=== PATIENT | female | born 1930 | race Caucasian/White ===

== ENCOUNTER 2020-10-05 18:51 | Inpatient (IN) | payer OTHER ==
--- OUTSIDE RECORDS SUMMARY | 2020-10-05 19:02 | XMS REPORT | Continuity of Care Document ---
:1930 Author Organization [facility] t Address [address] [place] [address] Care Team Providers Name Role Phone Josh Gee MD Primary Care Physician Unavailable LEON CAMACHO Attending Clinician Unavailable LUKE SOLORIO Attending Clinician Unavailable LEON CAMACHO Admitting Clinician Unavailable LUKE SOLORIO Admitting Clinician Unavailable Problems Condition Condition Condition Status Onset Resolution Last Treating Co mments Source Name Details Category Date Date Treatment Clinician Date Back pain Back pain Disease Active [facility] at L4-L5 at L4-L5 3-12 [facility] level [facility] 00 Center Primary Primary Disease Active [facility] osteoarthr osteoarthr 5-11 [facility] - itis of itis of 00:00: Medical right knee right knee 00 Ce nter Primary Primary Disease Active [facility] osteoarthr osteoarthr 2-24 Lana kes - itis of itis of 00:00: Medical left knee left knee 00 Cent er Localized Localized Disease Active [facility] primary primary 2-24 [facility] - osteoarthr osteoarthr 00:00: Me dical itis of itis of 00 [place] left lower left lower leg leg Nausea and Nausea and Disease Active 2015-[address] vomiting vomiting 2-29 [facility] - 00:00: Medical 00 [place] Left upper Left upper Disease Active 2015-[address] quadrant quadrant 2-29 [facility] - pain pain 00:00: Medical 00 [place] Constipati Constipati Disease Active 2015-[address] on on - 00:00: Medical 00 [place] Hypothyroi Hypothyroi Disease Active 2015-[address] dism dism 05-25 - 00:00: Medical 00 [place] Acute Acute Disease Active 2015-[address] [facility] diverticul diverticul 05-16 Lana kes - itis itis 00:00: Medical 00 [place] GI bleed GI bleed Disease Active 2015-04 [facility] 04-15 [facility] - 00:[facility]: Medical 00 [place] Diverticul Diverticul Disease Active 2015-[address] itis of itis of 04-14 [facility] - large large 00:00: Medical intestine intestine 00 Cent er without without perforatio perforatio n or n or abscess abscess without without bleeding bleeding ANSHU (acute ANSHU (acute Disease Active 2015-[address] kidney kidney 04-14kes - injury) injury) 00:00: Medical 00 [place] Dehydratio Dehydratio Disease Active 2015-[address] n n - 00:00: Medical 00 [place] Grief Grief Disease Active 2015-[address] [facility] reaction reaction - 00:00: Medical 00 [place] Hyponatrem Hyponatrem Disease Active 2012-[address] ia ia 04-02kes - 00:00: Medical 00 [place] Cholelithi Cholelithi Disease Active 2012-[address] asis asis 04-02kes - 00:00: Medical 00 [place] Myoclonic Myoclonic Disease Active [facility] jerking jerking 12-29 - 00:00: Medical 00 [place] Muscle Muscle Disease Active [facility] spasms of spasms of 12-29 [facility] - lower lower 00:00: Medical extremity extremity 00 Cent er Hypertensi Hypertensi Disease Active [facility] on on 12-29kes - 00:00: Medical 00 [place] Cancer Cancer Disease Active Overview: [facility] Right [facility] breast [facility] Thyroid Thyroid Disease Active [facility] disease disease [facility] Allergies, Adverse Reactions, Alerts Allergy Allergy Status Severity Reaction(s) Onset Inactive Treating Comm ents Source Name Type Date Date Clinician [place] Drug Active Other (See 2015-[address] Pepper Intolera Comments) 2-16 litis [facility] - nce 00:00: Medical 00 [place] Tizanidi Drug Active Other (See 2015-[address] [facility] [address] [facility] ne Allergy Comments) it caused Venita es - 00:00: dizziness Medical 00 . Center Duloxeti Propensi Active Muscle [facility] ne ty to 12-29 spasms [facility] - adverse 00:00: Medical reaction 00 Center s Alendron Propensi Active Muscle [facility] ate ty to 12-29 spasms [facility] - adverse 00:00: Medical reaction 00 [place] s Fluoxeti Propensi Active Muscle [facility] ne ty to 12-29 spasms [facility] - adverse 00:00: Medical reaction 00 [place] s Simvasta Propensi Active Muscle [facility] tin ty to 12-29 spasms [facility] - adverse 00:00: Medical reaction 00 [place] s Family History Family Member Diagnosis Comments Start Date Stop Date Source Natural father Diabetes [facility] Natural father Heart disease [facility] Natural mother Asthma [facility] Natural sister Cancer [facility] Natural son Cancer [facility] Social History Social Habit Start Date Stop Date Quantity Comments Source Sex Assigned At [facility] Tobacco use and 2017-06-12 2017-06-12 [address] [facility] 00:00:00 00:00:00 [facility] Alcohol intake 2017-06-12 2017-06-[address] [facility] 00:00:00 00:00:00 non-drinker of Medical nter alcohol (finding) Smoking Status Start Date Stop Date Source Never smoker [facility] edical [place] Medications Ordered Filled Start Stop Current Ordering Indication Dosage Frequency Signature Comments Components Source Medication Medication Date Date Medication? Clinician (SIG) Name Name amLODIPine Yes 5mg QD Take [address] (NORVASC) 5 3-13 by mouth [facility] - MG tablet 14:17: daily. Medica l 54 [place] timolol Yes 1[drp] Q.5D Place 1 [facility] (TIMOPTIC) 3-13 drop into [facility] - 0.5 % 14:17: both eyes Medical ophthalmic 54 2 (two) Center solution times daily. lisinopril Yes 10mg QD Take [address] (PRINIVIL,Z 3-13 by mouth [facility] s - ESTRIL) 10 14:17: daily. Medic al MG tablet 54 Center mirtazapine 2018-0 Yes 15mg QD Take [address] (REMERON) 3-13 by mouth [facility] - 15 MG 14:17: nightly. Medical tablet 54 Center potassium 2018-0 Yes Q.5D Take by [facility] 99 mg Tab 3-13 mouth 2 [facility] - 14:17: (two) Medical 54 times Center daily. methocarbam 2018-0 Yes 500mg Q.25D Take [address] ol 3-13 mg by [facility] - (ROBAXIN) 14:17: mouth 4 Medic al 500 MG 54 (four) Center tablet times daily. levothyroxi 2018-0 Yes 75ug Take [address] [facility] ne 3-13 mcg by [facility] - (SYNTHROID, 14:17: mouth Medic al LEVOTHROID) 54 Every Center 50 MCG morning on tablet an empty stomach . sertraline 2018-0 Yes 50mg QD Take [address] (ZOLOFT) 50 3-13 by mouth [facility] - MG tablet 14:17: daily Medical 54 150mg in Center the am, 100 mg in the pm . clonazePAM 2018-0 Yes 1mg Q.5D Take [address] (KLONOPIN) 3-13 by mouth 2 Venita es - 0.5 MG 14:17: (two) Medical tablet 54 times Center daily. betamethaso 2018-0 Yes Apply [facility] ne 3-13 topically [facility] - dipropionat 14:17: 2 (two) Med ical e 54 times Center (DIPROLENE) daily as 0.05 % needed . cream OXcarbazepi 2018-0 Yes 150mg Q.5D Take [address] ne 3-13 mg by [facility] - (TRILEPTAL) 14:17: mouth 2 Med ical 150 MG 54 (two) Center tablet times daily. rOPINIRole 2018-0 Yes .5mg [id number] Take 0.[address] (REQUIP) 3-13 [id number] mg by Luke [facility] - 0.25 MG 14:17: 3D mouth 3 Medical tablet 54 (three) Center times daily. omeprazole 2018-0 Yes 40mg QD Take [address] (PRILOSEC) 3-13 by mouth [facility] - 40 MG 14:17: daily. Medical capsule 54 Center cranberry Yes 1{capsu Q.5D Take [address] 400 mg Cap 3-13 le} capsule by Venita es - 14:17: mouth 2 Medical 54 (two) Center times daily . fluticasone Yes 1{spray QD [address] [facility] (FLONASE) 3-13 } Nasal [facility] - 50 14:17: route Medical mcg/actuati 54 daily. Center on nasal spray escitalopra Yes 20mg QD Take [address] [facility] m oxalate 3-13 by mouth [facility] - (LEXAPRO) 14:17: daily. Medica l 20 MG 54 Center tablet HYDROcodone Yes 1{tbl} Take [address] -acetaminop 3-13 tablet by Venita es - hen (NORCO 00:00: mouth Medica l 5-325) 00 every 6 Center 5-325 mg (six) per tablet hours as needed for Pain. Max Daily Amount: 4 tablets Procedures This patient has no known procedures. Results Test Description Test Time Test Comments Results Result Comments Source BASIC METABOLIC PANEL 2017-06-12 05:19:00 Test Item Value Reference Range Interpretation Comme nts SODIUM (BEAKER) (test code 139 meq/L 135-148 = 381) POTASSIUM (BEAKER) (test 3.9 meq/L 3.5-5.5 code = 379) CHLORIDE (BEAKER) (test 106 meq/L 98-106 code = 382) CO2 (BEAKER) (test code = 23 meq/L 20-31 355) BLOOD UREA NITROGEN 15 mg/dL 10-26 (BEAKER) (test code = 354) CREATININE (BEAKER) (test 0.84 mg/dL 0.50-1.20 code = 358) GLUCOSE RANDOM (BEAKER) 157 mg/dL 70-110 H (test code = 652) CALCIUM (BEAKER) (test code 9.0 mg/dL 8.5-10.5 = 697) EGFR (BEAKER) (test code = 64 mL/min/1.73 sq m ESTIMATED GFR IS NOT 1092) ACCURATE CRE ATININE CLEARANCE IN [place] EDICTING GLOMERULAR FILT RATION RATE. ESTIMATED GFR IS NOT APPLICABLE FOR DIALYSIS PATIENTS. RAD, SPINE, LUMBAR, 1 [id number] 13:59:00Reason for exam:->surgeryFINAL REPORT Lumbar spine single view studies INDICATION: Lumbar spine surgery, pain. COMPARISON: 12/30/2012 IMPRESSION: Lumbar spine one view at 0923 hours: The tip of a surgicalneedle projects over the interspinous space at L3-4. Mild anterolisthesis at L4-5 remains present. There is disc degeneration with vacuum clefts from L3-4 to L5-S1. Other degenerative changes are suboptimally depicted on this single view. Vertebral heights are maintained. There are incidental vascularcalcifications. Lumbar spine one view at 0940 hours: A surgical curette projects over the posterior elements at the L4-5 intervertebral level. Retractors are seen posteriorly with in progress dorsal decompression changes. Mild anterolisthesis at L4-5 is again noted. Vertebral heights are maintained. The remainder of the study is otherwise grossly stable since 0923 hours. Signed: Mike Umanzor SHADOWeport Verified Date/Time: 06/11/2017 13:59:06 Reading Location: [address] Consult Reading Room RAD, SPINE, LUMBAR, 1 [id number] 13:59:00Reason for exam:->surgeryFINAL REPORT Lumbar spine single view studies INDICATION: Lumbar spine surgery, pain. COMPARISON: 12/30/2012 IMPRESSION: Lumbar spine one view at 0923 hours: The tip of a surgicalneedle projects over the interspinous space at L3-4. Mild anterolisthesis at L4-5 remains present. There is disc degeneration with vacuum clefts from L3-4 to L5-S1. Other degenerative changes are subopt imally depicted on this single view. Vertebral heights are maintained. There are incidental vascularcalcifications. Lumbar spine one view at 0940 hours: A surgical curette projects over the posterior elements at the L4-5 intervertebral level. Retractors are seen posteriorly with in progress dorsal decompression changes. Mild anterolisthesis at L4-5 is again noted. Vertebral heights are maintained. The remainder of the study is otherwise grossly stable since 0923 hours. Signed: Mike Umanzor MDReport Verified Date/Time: 06/11/2017 13:59:06 Reading Location: [facility] B1 [id number] Consult Reading Room BASI METABOLIC PANEL 2017-06-07 15:24:00 Test Item Value Reference Range Interpretation Comments SODIUM (BEAKER) 140 meq/L 135-148 (test code = 381) POTASSIUM (BEAKER) 4.6 meq/L 3.5-5.5 (test code = 379) CHLORIDE (BEAKER) 107 meq/L 98-106 H (test code = 382) CO2 (BEAKER) (test 24 meq/L 20-31 code = 355) BLOOD UREA NITROGEN 14 mg/dL 10-26 (BEAKER) (test code = 354) CREATININE (BEAKER) 0.86 mg/dL 0.50-1.20 (test code = 358) GLUCOSE RANDOM 96 mg/dL 70-110 (BEAKER) (test code = 652) CALCIUM (BEAKER) 9.9 mg/dL 8.5-10.5 (test code = 697) EGFR (BEAKER) (test 63 mL/min/1.73 ESTIMA DORA GFR IS code = 1092) sq m NOT ACCURATE CREATININE CLEARANCE IN PREDICTING GLOMERULAR FILTRATION RATE . ESTIMATED GFR I S NOT APPLICABLE FOR DIALYSIS PATIEN TS. CBC W/PLT COUNT & AUTO [id number] 15:03:00 Test Item Value Reference Range Interpretation Comments WHITE BLOOD CELL COUNT (BEAKER) 7.5 K/ L 4.0-10.0 (test code = 775) RED BLOOD CELL COUNT (BEAKER) 3.84 M/ L 4.00-5.00 L (test code = 761) HEMOGLOBIN (BEAKER) (test code = 11.5 GM/DL 12.0-15.0 L 410) HEMATOCRIT (BEAKER) (test code = 33.2 % 36.0-45.0 L 411) MEAN CORPUSCULAR VOLUME (BEAKER) 86.4 fL 82.0-99.0 (test code = 753) MEAN CORPUSCULAR HEMOGLOBIN 29.9 pg 27.0-33.0 (BEAKER) (test code = 751) MEAN CORPUSCULAR HEMOGLOBIN CONC 34.6 GM/DL 32.0-36.0 (BEAKER) (test code = 752) RED CELL DISTRIBUTION WIDTH 14.3 % 12.0-15.0 (BEAKER) (test code = 412) PLATELET COUNT (BEAKER) (test 296 K/CU MM 150-430 code = 756) MEAN PLATELET VOLUME (BEAKER) 9.2 fL 6.5-10.5 (test code = 754) NUCLEATED RED BLOOD CELLS 0 /100 WBC 0-0 (BEAKER) (test code = 413) NEUTROPHILS RELATIVE PERCENT 57 % (BEAKER) (test code = 429) LYMPHOCYTES RELATIVE PERCENT 24 % (BEAKER) (test code = 430) MONOCYTES RELATIVE PERCENT 11 % (BEAKER) (test code = 431) EOSINOPHILS RELATIVE PERCENT 7 % (BEAKER) (test code = 432) BASOPHILS RELATIVE PERCENT 1 % (BEAKER) (test code = 437) NEUTROPHILS ABSOLUTE COUNT 4.30 K/ L 1.80-8.00 (BEAKER) (test code = 670) LYMPHOCYTES ABSOLUTE COUNT 1.80 K/ L 1.48-4.50 (BEAKER) (test code = 414) MONOCYTES ABSOLUTE COUNT (BEAKER) 0.80 K/ L 0.00-1.30 (test code = 415) EOSINOPHILS ABSOLUTE COUNT 0.50 K/ L 0.00-0.50 (BEAKER) (test code = 416) BASOPHILS ABSOLUTE COUNT (BEAKER) 0.00 K/ L 0.00-0.20 (test code = 417) TISSUE [id number] 18:39:00Surgical Pathology Report Case: [id number] Authorizing Provider: Omer Solorio, Collected: 08/10/2016 1334 OrderingLocation: [facility] Received: 08/10/2016 1420 SERVICES Pathologist: Nagi Alicea MD Specimen: Condyle,Right Knee [id number], [id number] localized osteoarthritis of right knee.Right knee condyleSpecimen is received in a fluidless container labeled with the patient's information and labeled "right knee condyle" and consists of a few segments of trejo-pink knee bone and soft tissue measuring 3.3 x 0.4 cm. Articular surface is predominantly eburnated. Section code: A1, A2, bone submitted for decalcification. A3, soft tissue and bone submitted for decalcification. CG/bcPerformed.CONDYLES, RIGHT KNEE, ARTHROPLASTY: - DEGENERATIVE CHANGESCONSISTENT WITH OSTEOARTHRITIS Signing Pathologist Direct Phone Line: [phone] signed by Nagi Alicea MD on 08/17/2016 at 6:39 [facility] MET[facility] [id number] 05:17:00 Test Item Value Reference Range Interpretation Comments SODIUM (BEAKER) 141 meq/L 136-145 (test code = 381) POTASSIUM (BEAKER) 4.0 meq/L 3.5-5.1 (test code = 379) CHLORIDE (BEAKER) 111 meq/L 98-107 H (test code = 382) CO2 (BEAKER) (test 22 meq/L 22-29 code = 355) BLOOD UREA NITROGEN 22 mg/dL 7-21 H (BEAKER) (test code = 354) CREATININE (BEAKER) 0.96 mg/dL 0.57-1.25 (test code = 358) GLUCOSE RANDOM 118 mg/dL 70-105 H (BEAKER) (test code = 652) CALCIUM (BEAKER) 9.0 mg/dL 8.4-10.2 (test code = 697) EGFR (BEAKER) (test 55 mL/min/1.73 ESTIMA DORA GFR IS code = 1092) sq m NOT ACCURATE CREATININE CLEARANCE IN PREDICTING GLOMERULAR FILTRATION RATE . ESTIMATED GFR I S NOT APPLICABLE FOR DIALYSIS PATIEN TS. HEMOGLOBIN AND [id number] 04:44:00 Test Item Value Reference Range Interpretation Comments HEMOGLOBIN (BEAKER) (test code = 10.6 GM/DL 12.0-15.0 L 410) HEMATOCRIT (BEAKER) (test code = 31.8 % 36.0-45.0 L 411) BASIC METABOLIC [id number] 05:37:00 Test Item Value Reference Range Interpretation Comments SODIUM (BEAKER) 141 meq/L 136-145 (test code = 381) POTASSIUM (BEAKER) 3.9 meq/L 3.5-5.1 (test code = 379) CHLORIDE (BEAKER) 113 meq/L 98-107 H (test code = 382) CO2 (BEAKER) (test 21 meq/L 22-29 L code = 355) BLOOD UREA NITROGEN 28 mg/dL 7-21 H (BEAKER) (test code = 354) CREATININE (BEAKER) 0.88 mg/dL 0.57-1.25 (test code = 358) GLUCOSE RANDOM 138 mg/dL 70-105 H (BEAKER) (test code = 652) CALCIUM (BEAKER) 8.7 mg/dL 8.4-10.2 (test code = 697) EGFR (BEAKER) (test 61 mL/min/1.73 ESTIMA DORA GFR IS code = 1092) sq m NOT ACCURATE CREATININE CLEARANCE IN PREDICTING GLOMERULAR FILTRATION RATE . ESTIMATED GFR I S NOT APPLICABLE FOR DIALYSIS PATIEN TS. HEMOGLOBIN AND [id number] 05:32:00 Test Item Value Reference Range Interpretation Comments HEMOGLOBIN (BEAKER) (test code = 10.2 GM/DL 12.0-15.0 L 410) HEMATOCRIT (BEAKER) (test code = 30.5 % 36.0-45.0 L 411) BASIC METABOLIC [id number] 07:35:00 Test Item Value Reference Range Interpretation Comments SODIUM (BEAKER) 136 meq/L 136-145 (test code = 381) POTASSIUM (BEAKER) 4.5 meq/L 3.5-5.1 (test code = 379) CHLORIDE (BEAKER) 109 meq/L 98-107 H (test code = 382) CO2 (BEAKER) (test 17 meq/L 22-29 L code = 355) BLOOD UREA NITROGEN 29 mg/dL 7-21 H (BEAKER) (test code = 354) CREATININE (BEAKER) 0.96 mg/dL 0.57-1.25 (test code = 358) GLUCOSE RANDOM 175 mg/dL 70-105 H (BEAKER) (test code = 652) CALCIUM (BEAKER) 8.9 mg/dL 8.4-10.2 (test code = 697) EGFR (BEAKER) (test 55 mL/min/1.73 ESTIMA DORA GFR IS code = 1092) sq m NOT ACCURATE CREATININE CLEARANCE IN PREDICTING GLOMERULAR FILTRATION RATE . ESTIMATED GFR I S NOT APPLICABLE FOR DIALYSIS PATIEN TS. HEMOGLOBIN AND [id number] 05:38:00 Test Item Value Reference Range Interpretation Comments HEMOGLOBIN (BEAKER) (test code = 11.4 GM/DL 12.0-15.0 L 410) HEMATOCRIT (BEAKER) (test code = 34.0 % 36.0-45.0 L 411) POCT-GLUCOSE [id number] 09:52:00 Test Item Value Reference Range Interpretation Comments POC-GLUCOSE METER 114 mg/dL 70-110 H TESTED AT [facility] 6720 (BEAKER) (test code = [place] 1538) [address] BASIC METABOLIC [id number] 04:53:00 Test Item Value Reference Range Interpretation Comments SODIUM (BEAKER) 135 meq/L 136-145 L (test code = 381) POTASSIUM (BEAKER) 3.8 meq/L 3.5-5.1 (test code = 379) CHLORIDE (BEAKER) 105 meq/L 98-107 (test code = 382) CO2 (BEAKER) (test 21 meq/L 22-29 L code = 355) BLOOD UREA NITROGEN 19 mg/dL 7-21 (BEAKER) (test code = 354) CREATININE (BEAKER) 0.82 mg/dL 0.57-1.25 (test code = 358) GLUCOSE RANDOM 115 mg/dL 70-105 H (BEAKER) (test code = 652) CALCIUM (BEAKER) 8.9 mg/dL 8.4-10.2 (test code = 697) EGFR (BEAKER) (test 67 mL/min/1.73 ESTIMA DORA GFR IS code = 1092) sq m NOT ACCURATE CREATININE CLEARANCE IN PREDICTING GLOMERULAR FILTRATION RATE . ESTIMATED GFR I S NOT APPLICABLE FOR DIALYSIS PATIEN TS. HEMOGLOBIN AND [id number] 04:44:00 Test Item Value Reference Range Interpretation Comments HEMOGLOBIN (BEAKER) (test code = 9.8 GM/DL 12.0-15.0 L 410) HEMATOCRIT (BEAKER) (test code = 28.5 % 36.0-45.0 L 411) HEMOGLOBIN AND [id number] 05:51:00 Test Item Value Reference Range Interpretation Comments HEMOGLOBIN (BEAKER) (test code = 8.9 GM/DL 12.0-15.0 L 410) HEMATOCRIT (BEAKER) (test code = 26.8 % 36.0-45.0 L 411) BASIC METABOLIC [id number] 05:16:00 Test Item Value Reference Range Interpretation Comments SODIUM (BEAKER) 137 meq/L 136-145 (test code = 381) POTASSIUM (BEAKER) 4.4 meq/L 3.5-5.1 (test code = 379) CHLORIDE (BEAKER) 111 meq/L 98-107 H (test code = 382) CO2 (BEAKER) (test 19 meq/L 22-29 L code = 355) BLOOD UREA NITROGEN 25 mg/dL 7-21 H (BEAKER) (test code = 354) CREATININE (BEAKER) 0.82 mg/dL 0.57-1.25 (test code = 358) GLUCOSE RANDOM 102 mg/dL 70-105 (BEAKER) (test code = 652) CALCIUM (BEAKER) 8.2 mg/dL 8.4-10.2 L (test code = 697) EGFR (BEAKER) (test 67 mL/min/1.73 ESTIMA DORA GFR IS code = 1092) sq m NOT ACCURATE CREATININE CLEARANCE IN PREDICTING GLOMERULAR FILTRATION RATE . ESTIMATED GFR I S NOT APPLICABLE FOR DIALYSIS PATIEN TS.
[2020-10-05] MEDS ORDERED: NA CHLORIDE 0.9% 500 ML ONE (20:44)
[2020-10-05] MEDS ORDERED: FENTANYL CITR 100 MCG/2 ML ONE (20:44)
[2020-10-05] MEDS ORDERED: ONDANSETRON 4 MG/2 ML VIAL ONE (20:44)
[2020-10-05 20:52] LABS: Absolute Lymphocytes (CBC) 2.2 K/uL (0.7-4.9); Basophils % 0.4 % (0-1.3); Lymphocytes % 15.3 % (15.3-44.8); MPV 9.6 fL (7.6-11.3); RBC Red Blood Cell Count 3.73 M/uL (3.86-4.86)
[2020-10-05 21:08] LABS: Albumin 3.6 g/dL (3.4-5.0); Bilirubin Direct 0.1 mg/dL (0-0.2); Bilirubin Total 0.3 mg/dL (0.2-1.0); Potassium 3.6 mmol/L (3.5-5.1); Protein, Total 6.8 g/dL (6.4-8.2)
[2020-10-05 22:55] LABS: Urine Blood 2+ (Negative); Urine Glucose Negative (Negative); Urine Protein Negative (Negative)
--- NOTE | 2020-10-05 23:26 | EDPHYS ---
Physician Documentation [facility] Name: Ariane Franco Age: 89 yrs Sex: Female : 1930 Arrival Date: 10/05/2020 Time: 18:55 Bed 8 Private MD: ED Physician Nikolai Jeong HPI: 10/05 20:18 This 89 yrs old Female presents to ER via Wheelchair with complaints of pm1 Rectal Bleeding. 20:18 The patient presents with abdominal pain in the left lower quadrant. pm1 20:18 Onset: The symptoms/episode began/occurred last night. The symptoms do not radiate. pm1 Associated signs and symptoms: Pertinent positives: nausea, Chills, bright red blood in stool, Pertinent negatives: chest pain, diarrhea, fever, shortness of breath, vomiting. The symptoms are described as crampy, sharp. Modifying factors: The symptoms are alleviated by nothing, the symptoms are aggravated by nothing. Severity of pain: in the emergency department the pain is actually worse. The patient has experienced similar episodes in the past, a few times, today's symptoms are similar, to previous diverticulitis. The patient has not recently seen a physician, PCP out of town. 20:18 Patient recently diagnosed with UTI by PCP, she is taking antibiotics for the UTI, pm1 currently on day 7. Historical: - Allergies: 19:01 Codeine; sv 19:01 Cymbalta; sv 19:01 Gabapentin; sv 19:01 red peppers; sv 19:01 ezetimibe; sv 19:01 Fosamax; sv 19:01 Prozac; sv 19:01 Simvastatin; sv 19:01 Tizanidine; sv - PMHx: 19:01 Diverticulitis; sv - Immunization history:: Adult Immunizations unknown. - Social history:: Smoking status: unknown. ROS: 20:18 Eyes: Negative for injury, pain, redness, and discharge. pm1 20:18 ENT: Negative for injury, pain, and discharge, Neck: Negative for injury, pain, and swelling, Cardiovascular: Negative for chest pain, palpitations, and edema, Respiratory: Negative for shortness of breath, cough, wheezing, and pleuritic chest pain. 20:18 Constitutional: Positive for chills, Negative for fever. 20:18 Back: Negative for injury and pain, : Negative for injury, bleeding, discharge, and pm1 swelling, MS/Extremity: Negative for injury and deformity, Skin: Negative for injury, rash, and discoloration, Neuro: Negative for headache, weakness, numbness, tingling, and seizure. 20:18 Abdomen/GI: Positive for abdominal pain, nausea, Negative for vomiting, diarrhea, constipation. Exam: 20:18 Constitutional: This is a well developed, well nourished patient who is awake, alert, pm1 and in no acute distress. Head/Face: Normocephalic, atraumatic. 20:18 Skin: Warm, dry with normal turgor. Normal color with no rashes, no lesions, and no evidence of cellulitis. MS/ Extremity: Pulses equal, no cyanosis. Neurovascular intact. Full, normal range of motion. 20:18 Eyes: Exam is negative for acute changes, Periorbital structures: appear normal, Pupils: no acute changes, Extraocular movements: no acute changes. 20:18 ENT: Exam is negative for acute changes, Mouth: Lips: normal, Oral mucosa: normal, pink and intact, moist. 20:18 Cardiovascular: Rate: normal, Rhythm: regular, Pulses: no pulse deficits are appreciated, Edema: is not appreciated. 20:18 Respiratory: Exam negative for acute changes, respiratory distress, shortness of breath, Breath sounds: are clear throughout. 20:18 Abdomen/GI: Inspection: abdomen appears normal, Palpation: soft, in all quadrants, mild abdominal tenderness, in the left lower quadrant. 20:18 Neuro: Exam negative for acute changes, Orientation: is normal, Mentation: is normal, Motor: is normal, moves all fours. 21:31 Abdomen/GI: Rectal exam: rectal tone normal, Stool: trejo, guaiac negative, pm1 hemorrhoid(s), external, with inflammation, without bleeding, without thrombosis, without pain, tenderness, is not appreciated, Garment Presser Attila JOHNSON. Vital Signs: 19:03 BP 114 / 50; Pulse 78; Resp 16; Temp 98.7; Pulse Ox 99% ; Weight 79.38 kg; Height 5 ft. sv 6 in. (167.64 cm); 21:10 BP 126 / 49; Pulse 85; Resp 18; Pulse Ox 98% ; ea 21:31 BP 137 / 50; Pulse 80; Resp 15 S; Pulse Ox 100% ; ad5 22:55 BP 129 / 49; Pulse 78; Resp 16 S; Pulse Ox 100% on R/A; ad5 10/06 00:51 BP 127 / 65; Pulse 80; Resp 18; Pulse Ox 98% ; ea 10/05 19:03 Body Mass Index 28.25 (79.38 kg, 167.64 cm) sv MDM: 10/05 20:08 Patient medically screened. pm1 23:22 Data reviewed: vital signs. Data interpreted: Pulse oximetry: on room air is 100 %. pm1 Interpretation: normal. 23:22 Counseling: I had a detailed discussion with the patient and/or guardian regarding: the pm1 historical points, exam findings, and any diagnostic results supporting the discharge/admit diagnosis, lab results, radiology results, the need for further work-up and treatment in the hospital. 10/05 20:18 Order name: Basic Metabolic Panel pm1 10/05 20:18 Order name: CBC with Diff; Complete Time: 20:58 pm1 10/05 20:18 Order name: Hepatic Function; Complete Time: 21:10 pm1 10/05 20:18 Order name: Lipase; Complete Time: 21:10 pm1 10/05 20:18 Order name: PT-INR; Complete Time: 21:10 pm1 10/05 20:18 Order name: Ptt, Activated; Complete Time: 21:10 pm1 10/05 20:18 Order name: CT Abd/Pelvis - IV Contrast Only pm1 10/05 20:18 Order name: Type And Screen; Complete Time: 23:25 pm1 10/05 20:18 Order name: Basic Metabolic Panel; Complete Time: 21:10 EDMS 10/05 22:55 Order name: Urine Dipstick-Ancillary; Complete Time: 23:02 EDMS 10/05 23:07 Order name: Urine Microscopic Only pm1 10/05 20:18 Order name: IV Saline Lock; Complete Time: 20:43 pm1 10/05 20:18 Order name: Labs collected and sent; Complete Time: 20:43 pm1 Administered Medications: 20:43 Drug: fentaNYL (PF) 25 mcg Route: IVP; Site: left forearm; ea 21:30 Follow up: Response: No adverse reaction; Pain is decreased; RASS: Alert and Calm (0) ad5 20:43 Drug: Zofran (Ondansetron) 4 mg Route: IVP; Site: left forearm; ea 21:30 Follow up: Response: No adverse reaction ad5 20:43 Drug: NS 0.9% 500 ml Volume: 500 ml; Route: IV; Rate: 1 bolus; Site: left forearm; ea 21:30 Follow up: IV Status: Completed infusion; IV Intake: 500ml ad5 23:22 Drug: Cipro (ciprofloxacin) 500 mg Route: PO; ea 10/06 00:58 Follow up: Response: No adverse reaction ea 10/05 23:22 Drug: Flagyl (metroNIDAZOLE) 500 mg Volume: 100 ml; Route: IVPB; Rate: 200 ml/hr; ea Infused Over: 30 mins; Site: left forearm; 10/06 00:58 Follow up: Response: No adverse reaction; IV Status: Completed infusion ea Disposition: 08:02 Co-signature as Attending Physician, Nikolai Jeong MD. [facility] Disposition Summary: 10/05/20 23:25 Hospitalization Ordered Hospitalization Status: Inpatient Admission pm1 Provider: Oskar Samuels pm1 [facility] pm1 Condition: Stable pm1 Problem: new pm1 Symptoms: have improved pm1 Bed/Room Type: Standard pm1 Room Assignment: 431(10/06/20 00:12) tl1 Diagnosis - Left sided colitis pm1 Forms: - Medication Reconciliation Form pm1 - SBAR form pm1 Signatures: Dispatcher [employer] EDEloisa Lipscomb RN RN sv Attema, Lee, TRAIN DRIVER-C TRAIN DRIVER-[facility] Rosa Ortiz RN RN [facility] Robert Kilpatrick NP FRONT END DRUPAL DEVELOPER pm1 Mary Francis RN RN ea Holmes, Maurice, MD MD [facility] Attila Bose ad5 Corrections: (The following items were deleted from the chart) 00:12 10/05 23:25 pm1 tl1 10/06 00:18 10/05 20:18 Associated signs and symptoms: Pertinent positives: nausea and vomiting, pm1 Chills, bright red blood in stool, Pertinent negatives: chest pain, fever, shortness of breath, pm1
--- NOTE | 2020-10-05 23:26 | ER ---
Nurse's Notes [facility] Name: Ariane Franco Age: 89 yrs Sex: Female : 1930 Arrival Date: 10/05/2020 Time: 18:55 Bed 8 Private MD: Diagnosis: Left sided colitis Presentation: 10/05 19:00 Chief complaint: Patient states: abd pain, constipation, rectal bleeding, cold sweats, sv nausea started today. Coronavirus screen: Client denies travel out of the [place] in the last 14 days. At this time, the client does not indicate any symptoms associated with coronavirus-19. Ebola Screen: No symptoms or risks identified at this time. Risk Assessment: Do you want to hurt yourself or someone else? Patient reports no desire to harm self or others. Onset of symptoms was October 05, 2020. 19:00 Method Of Arrival: Wheelchair sv 19:00 Acuity: TE 3 sv 19:03 Initial Sepsis Screen: Does the patient meet any 2 criteria? No. Patient's initial sv sepsis screen is negative. Does the patient have a suspected source of infection? No. Patient's initial sepsis screen is negative. Triage Assessment: 19:05 General: Appears in no apparent distress. comfortable, Behavior is calm, cooperative, sv appropriate for age. Pain: Complains of pain in abdomen. Neuro: Level of Consciousness is awake, alert, obeys commands, Oriented to person, place, time, situation. Respiratory: Respiratory effort is even, unlabored. Historical: - Allergies: 19:01 Codeine; sv 19:01 Cymbalta; sv 19:01 Gabapentin; sv 19:01 red peppers; sv 19:01 ezetimibe; sv 19:01 Fosamax; sv 19:01 Prozac; sv 19:01 Simvastatin; sv 19:01 Tizanidine; sv - PMHx: 19:01 Diverticulitis; sv - Immunization history:: Adult Immunizations unknown. - Social history:: Smoking status: unknown. Screenin:43 Abuse screen: Denies threats or abuse. Nutritional screening: No deficits noted. ea Tuberculosis screening: No symptoms or risk factors identified. Fall Risk IV access (20 points). Assessment: 20:44 General: Appears in no apparent distress. Behavior is calm, cooperative, appropriate ea for age. Pain: Denies pain. Neuro: Level of Consciousness is awake, alert, obeys commands. Cardiovascular: Patient's skin is warm and dry. Derm: Skin is pink, warm \T\ dry. 21:31 Reassessment: Patient appears in no apparent distress at this time. Patient and/or ad5 family updated on plan of care and expected duration. Pain level reassessed. Patient is alert, oriented x 3, equal unlabored respirations, skin warm/dry/pink. Patient states symptoms have improved. 22:55 Reassessment: Patient appears in no apparent distress at this time. No changes from ad5 previously documented assessment. Patient and/or family updated on plan of care and expected duration. Pain level reassessed. 10/06 00:52 Reassessment: Patient and/or family updated on plan of care and expected duration. Pain ea level reassessed. Patient is alert, oriented x 3, equal unlabored respirations, skin warm/dry/pink. Report called to receiving nurse on fourth floor. Pt left ED via wheelchair per ED nurse. Pt tolerating well. Vital Signs: 10/05 19:03 BP 114 / 50; Pulse 78; Resp 16; Temp 98.7; Pulse Ox 99% ; Weight 79.38 kg; Height 5 ft. sv 6 in. (167.64 cm); 21:10 BP 126 / 49; Pulse 85; Resp 18; Pulse Ox 98% ; ea 21:31 BP 137 / 50; Pulse 80; Resp 15 S; Pulse Ox 100% ; ad5 22:55 BP 129 / 49; Pulse 78; Resp 16 S; Pulse Ox 100% on R/A; ad5 10/06 00:51 BP 127 / 65; Pulse 80; Resp 18; Pulse Ox 98% ; ea 10/05 19:03 Body Mass Index 28.25 (79.38 kg, 167.64 cm) sv ED Course: 10/05 18:55 Patient arrived in ED. ds1 19:00 Arm band placed on. sv 19:01 Triage completed. sv 19:43 Attila Bose is Primary Nurse. ad5 20:07 Robert Kilpatrick NP is PHCP. pm1 20:07 Nikolai Jeong MD is Attending Physician. pm1 20:43 Inserted saline lock: 20 gauge in left forearm, using aseptic technique. Blood ea collected. 20:44 Patient has correct armband on for positive identification. Bed in low position. Call ea light in reach. 21:29 Served as a speech/language therapist during rectal exam. Pt tolerated well. Repositioned for comfort. ad5 NAD noted, will continue to monitor. 22:18 CT Abd/Pelvis - IV Contrast Only In Process Unspecified. EDMS 23:25 Oskar Samuels DO is Hospitalizing Provider. pm1 10/06 00:51 Patient admitted, IV remains in place. ea Administered Medications: 10/05 20:43 Drug: fentaNYL (PF) 25 mcg Route: IVP; Site: left forearm; ea 21:30 Follow up: Response: No adverse reaction; Pain is decreased; RASS: Alert and Calm (0) ad5 20:43 Drug: Zofran (Ondansetron) 4 mg Route: IVP; Site: left forearm; ea 21:30 Follow up: Response: No adverse reaction ad5 20:43 Drug: NS 0.9% 500 ml Volume: 500 ml; Route: IV; Rate: 1 bolus; Site: left forearm; ea 21:30 Follow up: IV Status: Completed infusion; IV Intake: 500ml ad5 23:22 Drug: Cipro (ciprofloxacin) 500 mg Route: PO; ea 10/06 00:58 Follow up: Response: No adverse reaction ea 10/05 23:22 Drug: Flagyl (metroNIDAZOLE) 500 mg Volume: 100 ml; Route: IVPB; Rate: 200 ml/hr; ea Infused Over: 30 mins; Site: left forearm; 10/06 00:58 Follow up: Response: No adverse reaction; IV Status: Completed infusion ea Intake: 10/05 21:30 IV: 500ml; Total: 500ml. ad5 Outcome: 23:25 Decision to Hospitalize by Provider. pm1 10/06 00:37 Condition: stable ea Instructed on the need for admit, Demonstrated understanding of instructions. 00:51 Admitted to Med/surg accompanied by nurse, via wheelchair, room 431, with chart, Report ea called to Receiving nurse on fourth floor 01:04 Patient left the ED. ea Signatures: Dispatcher [employer] EDMI Eloisa Green RN RN sv Sanford, Demi ds1 Robert Kilpatrick, COTTON BROKER COTTON BROKER pm1 Mary Francis RN RN ea Davidson, Andrea ad5 Corrections: (The following items were deleted from the chart) 10/05 19:05 19:03 Pulse 78bpm; Resp 16bpm; Pulse Ox 99%; Temp 98.7F; 79.38 kg; Height 5 ft. 6 in.; sv BMI: 28.2; sv
[2020-10-05] MEDS ORDERED: METRONIDAZOLE 500mg IVPB 500 MG/100 ML BAG IV ONE (23:35)
[2020-10-05] MEDS ORDERED: CIPROFLOXACIN HCL 500 MG TAB ONE (23:35)
--- NOTE | 2020-10-06 00:34 | P.HP ---
Certification for Inpatient Patient admitted to: Inpatient With expected LOS: >2 Midnights Patient will require the following post-hospital care: None Practitioner: I am a practitioner with admitting privileges, knowledge of patient current condition, hospital course, and medical plan of care. Services: Services provided to patient in accordance with Admission requirements found in Title 42 Section 412.3 of the Code of Federal Regulations Patient History Date of Service: 10/06/20 Primary Care Provider: Out of town Reason for admission: Colitis, hyponatremia History of Present Illness: 89-year-old female with history of hypertension, hyperlipidemia, hypothyroidism, diverticulitis presents emergency department for left lower quadrant/suprapubic pain and hematochezia. Patient reports pain started yesterday, had 1 bowel movement with bright red blood yesterday. Patient evaluated in the emergency department, labs significant for white blood cell count 14.6 hemoglobin 11.2 hematocrit 32.0 sodium 125 chloride 91, BUN 41 and GFR 46 glucose 113 urinalysis with 1+ leuk esterase, patient reports she has been on oral antibiotics for the last 1 week, patient unsure of which oral antibiotic she is taking. ED provider wishes to admit for further evaluation and management. - Past Medical/Surgical History -: Diverticulitis -: Hypertension -: Hyperlipidemia -: Hypothyroidism -: Sciatic pain -: Cholecystectomy -: Hysterectomy -: Appendectomy Psychosocial/ Personal History: Retired, lives with son - Family History Sister -: Cancer - Social History Smoking Status: Never smoker Alcohol use: No CD- Drugs: No Caffeine use: Yes Place of Residence: Home Review of Systems 10-point ROS is otherwise unremarkable Gastrointestinal: Nausea, Abdominal Pain, Hematochezia, As per HPI Physical Examination - Physical Exam General: Alert, In no apparent distress, Oriented x3 HEENT: Atraumatic, PERRLA, Mucous membr. moist/pink Neck: Supple, 2+ carotid pulse no bruit, No LAD Respiratory: Clear to auscultation bilaterally, Normal air movement Cardiovascular: Regular rate/rhythm, Normal S1 S2 Gastrointestinal: Normal bowel sounds, No rebound, No guarding, Tenderness (Moderate left lower quadrant/suprapubic tenderness) Musculoskeletal: No tenderness Integumentary: No rashes Neurological: Normal speech, Normal strength at 5/5 x4 extr, Normal tone, Normal affect - Studies Laboratory Data (last 24 hrs) 07/06/21 20:35: PT 11.5, INR 1.00, APTT 28.3 10/05/20 20:35: WBC 14.60 H, Hgb 11.2 L, Hct 32.0 L, Plt Count 227 10/05/20 20:35: Sodium 125 L, Potassium 3.6, BUN 41 H, Creatinine 1.12, Glucose 113 H, Total Bilirubin 0.3, AST 22, ALT 28, Alkaline Phosphatase 69, Lipase 190 Assessment and Plan - Plan Assessment Hematochezia, abdominal pain, leukocytosis secondary to colitis Hyponatremia Hypertension Hyperlipidemia Hypothyroidism Plan Hematochezia, abdominal pain, leukocytosis secondary to colitis: Continue with IV Cipro/Flagyl. NPO overnight, GI consulted for additional assistance in management. Patient has not had additional hematochezia, hemoglobin 11. Will repeat with morning labs, anticipate some mild drop as patient is receiving IV fluids. DVT prophylaxis with SCDs. Last colonoscopy 2 years ago reported to have been normal. Hyponatremia: Continue gentle hydration overnight, recheck with morning labs. Hypertension: Continue home meds Hyperlipidemia: Continue home meds Hypothyroidism: Thyroid panel with morning labs, continue home meds Discharge Plan: Home Plan to discharge in: 48 Hours - Advance Directives Does patient have a Living Will: No Does patient have a Durable POA for Healthcare: No - Code Status/Comfort Care Code Status Assessed: Yes (Full code) Critical Care: No Time Spent Managing Pts Care (In Minutes): 55
[2020-10-06 01:19] VITALS: BMI 27.8
[2020-10-06] MEDS ORDERED: METRONIDAZOLE 500mg IVPB 500 MG/100 ML BAG IV SCH (01:25)
[2020-10-06] MEDS ORDERED: MORPHINE 2 MG/ML SYR IV PRN (01:25)
[2020-10-06] MEDS ORDERED: ONDANSETRON 4 MG/2 ML VIAL IV PRN (01:25)
[2020-10-06] MEDS: NA CHLORIDE 0.9% 1,000 ML IV SCH ×3 (02:16→21:24)
[2020-10-06 03:59] LABS: Absolute Lymphocytes (CBC) 1.6 K/uL (0.7-4.9); Basophils % 0.7 % (0-1.3); Hematocrit 29.3 % (36.0-45.0); Lymphocytes % 17.3 % (15.3-44.8); MPV 9.8 fL (7.6-11.3); RBC Red Blood Cell Count 3.37 M/uL (3.86-4.86)
[2020-10-06 04:33] LABS: Albumin 3.1 g/dL (3.4-5.0); Bilirubin Total 0.3 mg/dL (0.2-1.0); Magnesium 1.8 mg/dL (1.8-2.4); Potassium 3.2 mmol/L (3.5-5.1); Protein, Total 6.2 g/dL (6.4-8.2); Thyroid Stimulating Hormone 1.13 uIU/mL (0.360-3.740)
--- NOTE | 2020-10-06 06:16 | P.PN ---
Subjective Date of Service: 10/06/20 Primary Care Provider: Dr. Fisher(Visiting son for a month) Chief Complaint: Colitis, hyponatremia Subjective: Other (SHe is feeling better. She has a history of colitis. She has flares with red pepper. She thinks she ate something recently.) Physical Examination - Vital Signs Temperature: 97.5 F Blood Pressure: 125/60 Pulse: 72 Respirations: 16 Pulse Ox (%): 95 - Studies Laboratory Data (last 24 hrs) 10/05/20 20:35: PT 11.5, INR 1.00, APTT 28.3 10/05/20 20:35: WBC 14.60 H, Hgb 11.2 L, Hct 32.0 L, Plt Count 227 10/05/20 20:35: Sodium 125 L, Potassium 3.6, BUN 41 H, Creatinine 1.12, Glucose 113 H, Total Bilirubin 0.3, AST 22, ALT 28, Alkaline Phosphatase 69, Lipase 190 Assessment & Plan Discharge Plan: Home Plan to discharge in: 72 Hours Physician Review Additional Text: CT AB: FINDINGS: The lung bases demonstrate presence of subsegmental atelectatic changes inferior aspect right middle lobe. The liver, pancreas, spleen and adrenal glands demonstrate to be unremarkable, no focal lesions are noted. Surgical clips within the gallbladder fossa lyn esponding to previous cholecystectomy. The kidneys demonstrate normal uptake of contrast media with no evidence for hydronephrosis. There are tiny lower pole right renal cyst measuring 0.7 cm and 0.6 cm on image 34/98. There are left renal cysts the largest one upper pole measuring approximately 3.6 x 3.3 cm on image 23/98. Grossly the unopacified stomach and small bowel demonstrate to be within normal limits. There is no evidence for bowel dilatation/or free air. There is abnormal circumferential mucosal thickening of the left site colon/descending colon extending into the sigmoid colon suggesting the possibility of bacterial colitis and/or pseudomembranous colitis. Minimal atherosclerosis is seen within the sigmoid colon for which minimal diverticulitis also could be of consideration. There is no evidence for free air and/or perforation. The appendix was not visualized. The urinary bladder demonstrate to be unremarkable. The uterus is absent. There are no adnexal masses. The aorta demonstrate minimal atherosclerotic disease. There is no retroperitoneal lymphadenopathy. There is no evidence for ascites and/or significant abnormal fluid collections. The bone windows demon strate degenerative disc disease with vacuum effect at L3-S1. There is grade 1 degenerative spondylolisthesis at L4/L5. Superficial right gluteal lesions measuring 1.6 and 1.7 cm on image 50/98 could correspond to probable sebaceous cysts. IMPRESSION: Abnormal circumferential mucosal thickening of the left site colon/descending colon extending into the sigmoid colon suggesting the possibility of bacterial colitis and/or pseudomembranous colitis. Minimal diverticulosis seen within the sigmoid colon for which minimal diverticulitis/bacterial colitis is of consideration. Status post cholecystectomy and hysterectomy. Physical exam: General: Alert, In no apparent distress, Oriented x3 HEENT: Atraumatic, PERRLA, Mucous membr. moist/pink Neck: Supple, 2+ carotid pulse no bruit, No LAD Respiratory: Clear to auscultation bilaterally, Normal air movement Cardiovascular: Regular rate/rhythm, Normal S1 S2 Gastrointestinal: Normal bowel sounds, No rebound, No guarding, Tenderness to the left lower quadrant but reports improvement. Musculoskeletal: No tenderness Integumentary: No rashes Neurological: Normal speech, Normal strength at 5/5 x4 extr, Normal tone, Normal affect Impression: Hematochezia, LLL abdominal pain, leukocytosis secondary to colitis Hyponatremia Hypertension Hyperlipidemia Hypothyroidism Depression Urinary incontinence Chronic Sciatic nerve pain Plan Hematochezia, LLL abdominal pain, leukocytosis secondary to colitis: She is feeling better. Will continue with IV Cipro/Flagyl. Will start clear liquid then advance to low residue soft as tolerated. Encourage ambulation. She is seen by GI in [place]. She visiting son for a month in the area. GI is with [facility]. Last colonoscopy was a couple years ago. No significant issues on the last colonoscopy. She is very sensitive to red pepper which she think she ate recently. GI consulted for recommendations. DVT prophylaxis with SCDs. Likely home tomorrow if tolerating her diet and lab improved. Hyponatremia: Continue with IV fluids. Advance diet. Will continue to monitor lab. Hypertension: Continue home meds Hyperlipidemia: Continue home meds Hypothyroidism: Thyroid panel with morning labs, continue home meds DVT prophylaxis: SCD CODE STATUS: Full code Advanced care minutes: Home at discharge Time Spent Managing Pts Care (In Minutes): 55
[2020-10-06 06:40] LABS: Urine Appearance CLEAR (Clear); Urine Bilirubin NEGATIVE (Negative); Urine Blood NEGATIVE (Negative); Urine Color YELLOW (Yellow); Urine Glucose NEGATIVE (Negative); Urine Protein NEGATIVE (Negative); Urine Urobilinogen 0.2 mg/dL (0.2-1.0)
[2020-10-06] MEDS ORDERED: TRAMADOL HCL 50 MG TAB PO PRN (06:58)
[2020-10-06 07:15] LABS: Urine Microscopic Reflex ORDER UMIC
[2020-10-06] MEDS ORDERED: MAGNESIUM SULFATE 1 gm IVPB 1 GM/100 ML BAG IV ONE (07:26)
[2020-10-06 07:40] LABS: Urine Bacteria <20 /HPF (<20); Urine RBC <5 /HPF (NONE SEEN)
[2020-10-06] MEDS: KCL 20 MEQ/100 mL IVPB 20 MEQ/100 ML BAG IV SCH ×2 (08:28→10:00)
[2020-10-06] MEDS: METRONIDAZOLE 500mg IVPB 500 MG/100 ML BAG IV SCH ×2 (08:29→17:30)
[2020-10-06] MEDS: CIPROFLOXACIN 400mg IV 400 MG/200 ML BAG IV SCH ×2 (08:31→21:24)
[2020-10-06] MEDS: AMLODIPINE 5 MG TAB PO SCH (08:32)
[2020-10-06] MEDS: BACLOFEN 10 MG TAB PO SCH ×2 (08:32→21:25)
[2020-10-06] MEDS: OXcarbazepine 150 MG TAB PO SCH ×2 (08:32→21:25)
[2020-10-06] MEDS: PANTOPRAZOLE 40MG TABLET PO SCH (08:32)
[2020-10-06] MEDS: SERTRALINE HCL 100 MG TAB PO SCH (08:32)
[2020-10-06] MEDS: clonazePAM 1 MG TAB PO SCH ×2 (08:32→21:25)
[2020-10-06] MEDS: HOME MED 1 EA UNK (Mirabegron [Myrbetriq] 50 MG Tab.Er.24h) PO SCH (08:33)
[2020-10-06] MEDS: TIMOLOL MALEATE 0.5% OPTH 5 ML BTL OPTH SCH ×2 (08:33→21:00)
[2020-10-06 11:21] VITALS: O2SAT 99
--- NOTE | 2020-10-06 12:46 | RAD REPORT ---
EXAM DESCRIPTION: CTAbdomen Pelvis W Contrast - 10/06/2020 6:35 am CLINICAL HISTORY: 89 years, Female, Abd pain;Lower GI bleed COMPARISON: None. TECHNIQUE: Contrast-enhanced images of the abdomen and pelvis were performed utilizing 2 mm slice th ickness at 2 mm interval reconstruction from the lung bases to the ischial tuberosities after the adm inistration of IV contrast. In addition multiplanar reformats in the coronal and sagittal plane were obtained and reviewed. This exam was performed according to our departmental dose-optimization protocol, which includes auto mated exposure control, adjustment of the mA and/or kV according to patient size and/or use of iterat verónica reconstruction technique. FINDINGS: The lung bases demonstrate presence of subsegmental atelectatic changes inferior aspect ri ght middle lobe. The liver, pancreas, spleen and adrenal glands demonstrate to be unremarkable, no focal lesions are n oted. Surgical clips within the gallbladder fossa corresponding to previous cholecystectomy. The kidneys demonstrate normal uptake of contrast media with no evidence for hydronephrosis. There ar e tiny lower pole right renal cyst measuring 0.7 cm and 0.6 cm on image 34/98. There are left renal c ysts the largest one upper pole measuring approximately 3.6 x 3.3 cm on image 23/98. Grossly the unopacified stomach and small bowel demonstrate to be within normal limits. There is no evidence for bowel dilatation/or free air. There is abnormal circumferential mucosal thickening of t he left site colon/descending colon extending into the sigmoid colon suggesting the possibility of ba cterial colitis and/or pseudomembranous colitis. Minimal atherosclerosis is seen within the sigmoid c olon for which minimal diverticulitis also could be of consideration. There is no evidence for free a ir and/or perforation. The appendix was not visualized. The urinary bladder demonstrate to be unremarkable. The uterus is absent. There are no adnexal mass es. The aorta demonstrate minimal atherosclerotic disease. There is no retroperitoneal lymphadeno mariluz. There is no evidence for ascites and/or significant abnormal fluid collections. The bone windo ws demonstrate degenerative disc disease with vacuum effect at L3-S1. There is grade 1 degenerative s pondylolisthesis at L4/L5. Superficial right gluteal lesions measuring 1.6 and 1.7 cm on image 50/98 could correspond to probabl e sebaceous cysts. IMPRESSION: Abnormal circumferential mucosal thickening of the left site colon/descending colon exte nding into the sigmoid colon suggesting the possibility of bacterial colitis and/or pseudomembranous colitis. Minimal diverticulosis seen within the sigmoid colon for which minimal diverticulitis/bacterial colit is is of consideration. Status post cholecystectomy and hysterectomy. Electronically signed by: Spencer Black MD 10/05/2020 10:57 PM CDT Due to temporary technical issues with the PACS/Fluency reporting system, reports are being signed by the in house radiologist without review as a courtesy to ensure prompt reporting. The interpreting r adiologist is fully responsible for the content of the report.
[2020-10-06] MEDS ORDERED: ROPINIROLE HCL 0.25 MG TAB PO SCH (21:00)
[2020-10-06] MEDS ORDERED: MIRTAZAPINE 15 MG TAB PO SCH (21:00)
[2020-10-07] MEDS: METRONIDAZOLE 500mg IVPB 500 MG/100 ML BAG IV SCH ×2 (01:48→09:13)
[2020-10-07] MEDS: NA CHLORIDE 0.9% 1,000 ML IV SCH (04:05)
[2020-10-07 04:22] LABS: Absolute Lymphocytes (CBC) 1.5 K/uL (0.7-4.9); Basophils % 1.1 % (0-1.3); Hematocrit 28.5 % (36.0-45.0); Lymphocytes % 19.8 % (15.3-44.8); RBC Red Blood Cell Count 3.27 M/uL (3.86-4.86)
[2020-10-07 04:34] LABS: Albumin 2.9 g/dL (3.4-5.0); Bilirubin Total 0.2 mg/dL (0.2-1.0); Magnesium 1.6 mg/dL (1.8-2.4); Potassium 3.8 mmol/L (3.5-5.1); Protein, Total 5.6 g/dL (6.4-8.2)
[2020-10-07] MEDS ORDERED: LEVOTHYROXINE SOD 0.075 MG TAB PO SCH (06:00)
--- NOTE | 2020-10-07 06:11 | P.DS ---
Admission Date: 10/06/20 Discharge Date: 10/07/20 Primary Care Provider: Dr. Fisher(Visiting son for a month) Disposition: ROUTINE DISCHARGE Discharge Condition: GOOD Reason for Admission: Colitis, hyponatremia Consultations: GI-Dr. Narvaez Procedures: CT AB: FINDINGS: The lung bases demonstrate presence of subsegmental atelectatic changes inferior aspect right middle lobe. The liver, pancreas, spleen and adrenal glands demonstrate to be unremarkable, no focal lesions are noted. Surgical clips within the gallbladder fossa corresponding to previous cholecystectomy. The kidneys demonstrate normal uptake of contrast media with no evidence for hydronephrosis. There are tiny lower pole right renal cyst measuring 0.7 cm and 0.6 cm on image 34/98. There are left renal cysts the largest one upper pole measuring approximately 3.6 x 3.3 cm on image 23/98. Grossly the unopacified stomach and small bowel demonstrate to be within normal limits. There is no evidence for bowel dilatation/or free air. There is abnormal circumferential mucosal thickening of the left site colon/descending colon extending into the sigmoid colon suggesting the possibility of bacterial colitis and/or pseudomembranous colitis. Minimal atherosclerosis is seen within the sigmoid colon for which minimal diverticulitis also could be of consideration. There is no evidence for free air and/or perforation. The appendix was not visualized. The urinary bladder demonstrate to be unremarkable. The uterus is absent. There are no adnexal masses. The aorta demonstrate minimal atherosclerotic disease. There is no retroperitoneal lymphadenopathy. There is no evidence for ascites and/or significant abnormal fluid collections. The bone windows demonstrate degenerative disc disease with vacuum effect at L3-S1. There is grade 1 degenerative spondylolisthesis at L4/L5. Superficial right gluteal lesions measuring 1.6 and 1.7 cm on image 50/98 could correspond to probable sebaceous cysts. IMPRESSION: Abnormal circumferential mucosal thickening of the left site colon/descending colon extending into the sigmoid colon suggesting the possibility of bacterial colitis and/or pseudomembranous colitis. Minimal diverticulosis seen within the sigmoid colon for which minimal diverticulitis/bacterial colitis is of consideration. Status post cholecystectomy and hysterectomy. Medical Problem List: Hematochezia, LLL abdominal pain, leukocytosis secondary to sigmoid colitis Hyponatremia secondary to above Hypertension GERD Hypothyroidism Depression Urinary incontinence Chronic Sciatic nerve pain Restless leg syndrome Brief History of Present Illness: 89-year-old female with history of hypertension, hyperlipidemia, hypothyroidism, diverticulitis presents emergency department for left lower quadrant/suprapubic pain and hematochezia. Patient reports pain started yes terday, had 1 bowel movement with bright red blood yesterday. Patient evaluated in the emergency department, labs significant for white blood cell count 14.6 hemoglobin 11.2 hematocrit 32.0 sodium 125 chloride 91, BUN 41 and GFR 46 glucose 113 urinalysis with 1+ leuk esterase, patient reports she has been on oral antibiotics for the last 1 week, patient unsure of which oral antibiotic she is taking. ED provider wishes to admit for further evaluation and management. Hospital Course: Patient presented with left lower quadrant abdominal pain, leukocytosis and mild blood in the stool. Patient found to have colitis to the sigmoid region. Patient was given IV fluids and antibiotic therapy. GI consulted. No GI intervention was required. Patient with history of colitis in the past. Patient able to tolerate her diet. Pain resolved. Patient appears to be back to her baseline level. Patient had mild hyponatremia. This improved with IV fluid hydration. At discharge patient will continue with Cipro 500 mg 1 pill twice daily and Flagyl 500 mg 3 times a day for 7 days. Patient may continue with lactobacillus 3 times a day as well. Recommend follow-up with GI in 2 to 4 weeks to follow-up this hospitalization. Patient will need repeat colonoscopy in 4 to 6 weeks to further address. Education on colitis will be provided. Recommend to recheck labBMP in 1 week to monitor her progress. Recommend follow-up with her PCP in 1 to 2 weeks to follow-up hospitalization and continue her care. Patient with hypertension. At discharge she will continue with her medication- Norvasc 5 mg daily. Recommend to maintain blood pressure less than 130/80. Further adjustment can be done by her PCP. Patient with hypothyroidism. At discharge she will continue with her medication-Synthroid 75 mcg daily. Patient with depression. At discharge she will continue with her current medication-Zoloft 100 daily, Clonazepam 1 mg one pill twice daily and Remeron 15 mg every bedtime. Patient with history of urinary incontinence. At discharge she may continue with her current medications-Mybetriq and Tolterodine ER. Patient with chronic sciatic nerve pain. Patient will continue with her medication-Baclofen 10 mg one pill twice daily, Tramadol 50 one pill four times a day as needed for pain. Patient with GERD. She will continue with Protonix daily. Patient with RLS. She will continue with Requip 0.5 mg every bedtime. Vital Signs/Physical Exam: Temp Pulse Resp BP Pulse Ox 97.3 F 73 16 145/63 H 100 10/07/20 00:00 10/07/20 00:00 10/07/20 00:00 10/07/20 00:00 10/07/20 00:00 General: Alert, In no apparent distress, Oriented x3, Cooperative HEENT: Atraumatic Neck: Supple Respiratory: Clear to auscultation bilaterally, Normal air movement Cardiovascular: Normal pulses, Regular rate/rhythm Gastrointestinal: Normal bowel sounds, No ascites, No tenderness, No masses, No rebound, No guarding Musculoskeletal: No erythema, No tenderness, No warmth Integumentary: No tenderness/swelling, No erythema, No warmth, No cyanosis Neurological: Normal speech, Normal strength at 5/5 x4 extr, Normal tone, Normal affect Laboratory Data at Discharge: WBC 7.60 K/uL (4.3-10.9) D 10/07/20 03:21 Hgb 9.9 g/dL (12.0-15.0) L 10/07/20 03:21 Hct 28.5 % (36.0-45.0) L 10/07/20 03:21 Plt Count 219 K/uL (152-406) 10/07/20 03:21 PT 11.5 SECONDS (9.5-12.5) 10/05/20 20:35 INR 1.00 10/05/20 20:35 APTT 28.3 SECONDS (24.3-36.9) 10/05/20 20:35 Sodium 129 mmol/L (136-145) L 10/07/20 03:21 Potassium 3.8 mmol/L (3.5-5.1) 10/07/20 03:21 BUN 15 mg/dL (7-18) 10/07/20 03:21 Creatinine 0.71 mg/dL (0.55-1.3) 10/07/20 03:21 Glucose 102 mg/dL (74-106) 10/07/20 03:21 Magnesium 1.6 mg/dL (1.8-2.4) L 10/07/20 03:21 Total Bilirubin 0.2 mg/dL (0.2-1.0) 10/07/20 03:21 AST 21 U/L (15-37) 10/07/20 03:21 ALT 27 U/L (12-78) 10/07/20 03:21 Alkaline Phosphatase 54 U/L (45-117) 10/07/20 03:21 Lipase 190 U/L (73-393) 10/05/20 20:35 Home Medications: Amlodipine [Norvasc*] 5 mg PO DAILY 10/06/20 Baclofen [Lioresal*] 10 mg PO BID 10/06/20 Black Cohosh 2 cap PO BID 10/06/20 Estrogens,Conj Cream [Premarin 0.625MG/Gm*] 1 appl VAG SEECOM 10/06/20 Levothyroxine [Synthroid*] 75 mcg PO [id number] 10/06/20 Mirabegron [Myrbetriq] 50 mg PO DAILY 10/06/20 Mirtazapine [Remeron*] 15 mg PO BEDTIME 10/06/20 OXcarbazepine [Trileptal] 150 mg PO BID 10/06/20 Pantoprazole [Protonix Tab*] 40 mg PO DAILY 10/06/20 Ropinirole HCl [Requip*] 0.5 mg PO BEDTIME 10/06/20 Sertraline HCl 100 mg PO DAILY 10/06/20 Timolol Maleate/Pf [Timolol Maleate 0.5% Eye Drop] 1 each OP BID 10/06/20 Tolterodine Tartrate [Tolterodine Tartrate ER] 2 mg PO DAILY 10/06/20 Tramadol HCl [Ultram] 50 mg PO QID PRN 10/06/20 clonazePAM [Clonazepam] 1 mg PO BID 10/06/20 Ciprofloxacin HCl [Cipro 500 MG Tablet] 500 mg PO BID #14 tab 10/07/20 Lactobacillus Acidophilus [Acidophilus Lactobacilli] 1 each PO TID #30 capsule 10/07/20 metroNIDAZOLE [Flagyl] 500 mg PO Q8H #21 tablet 10/07/20 New Medications: Lactobacillus Acidophilus [Acidophilus Lactobacilli] 1 each PO TID #30 capsule Ciprofloxacin HCl [Cipro 500 MG Tablet] 500 mg PO BID #14 tab metroNIDAZOLE [Flagyl] 500 mg PO Q8H #21 tablet Physician Discharge Instructions: Patient presented with left lower quadrant abdominal pain, leukocytosis and mild blood in the stool. Patient found to have colitis to the sigmoid region. Patient was given IV fluids and antibiotic therapy. GI consulted. No GI intervention was required. Patient with history of colitis in the past. Patient able to tolerate her diet. Pain resolved. Patient appears to be back to her baseline level. Patient had mild hyponatremia. This improved with IV fluid hydration. At discharge patient will continue with Cipro 500 mg 1 pill twice daily and Flagyl 500 mg 3 times a day for 7 days. Patient may continue with lactobacillus 3 times a day as well. Recommend follow-up with GI in 2 to 4 weeks to follow-up this hospitalization. Patient will need repeat colonoscopy in 4 to 6 weeks to further address. Education on colitis will be provided. Recommend to recheck labBMP in 1 week to monitor her progress. Recommend follow-up with her PCP in 1 to 2 weeks to follow-up hospitalization and continue her care. Patient with hypertension. At discharge she will continue with her medication- Norvasc 5 mg daily. Recommend to maintain blood pressure less than 130/80. Further adjustment can be done by her PCP. Patient with hypothyroidism. At discharge she will continue with her medication-Synthroid 75 mcg daily. Patient with depression. At discharge she will continue with her current medication-Zoloft 100 daily, Clonazepam 1 mg one pill twice daily and Remeron 15 mg every bedtime. Patient with history of urinary incontinence. At discharge she may continue with her current medications-Mybetriq and Tolterodine ER. Patient with chronic sciatic nerve pain. Patient will continue with her medication-Baclofen 10 mg one pill twice daily, Tramadol 50 one pill four times a day as needed for pain. Patient with GERD. She will continue with Protonix daily. Patient with RLS. She will continue with Requip 0.5 mg every bedtime. Diet: AHA Activity: Ad liu Followup: NONE,NONE [Primary Care Provider] - Time spent managing pt's care (in minutes): 55
[2020-10-07] MEDS ORDERED: MAGNESIUM SULFATE 1 gm IVPB 1 GM/100 ML BAG IV ONE (06:12)
[2020-10-07] MEDS: TIMOLOL MALEATE 0.5% OPTH 5 ML BTL OPTH SCH ×2 (09:00→09:14)
[2020-10-07] MEDS: HOME MED 1 EA UNK (Mirabegron [Myrbetriq] 50 MG Tab.Er.24h) PO SCH (09:00)
[2020-10-07] MEDS ORDERED: POTASSIUM CL SA 10 MEQ TAB PO ONE (09:00)
[2020-10-07] MEDS: BACLOFEN 10 MG TAB PO SCH (09:09)
[2020-10-07] MEDS: AMLODIPINE 5 MG TAB PO SCH (09:09)
[2020-10-07] MEDS: clonazePAM 1 MG TAB PO SCH (09:09)
[2020-10-07] MEDS: PANTOPRAZOLE 40MG TABLET PO SCH (09:09)
[2020-10-07] MEDS: SERTRALINE HCL 100 MG TAB PO SCH (09:11)
[2020-10-07] MEDS: CIPROFLOXACIN 400mg IV 400 MG/200 ML BAG IV SCH (09:13)
[2020-10-07] MEDS: OXcarbazepine 150 MG TAB PO SCH (09:21)
[2020-10-07 10:00] VITALS: TEMP 97.1
[2020-10-07 12:13] VITALS: BP 144/54
== END 2020-10-07 10:59 | disposition home or self-care (01) | DRG 392 ==
LOC: ER 18:51 → 4TH 10-06 00:57
PROVIDERS: ADMIT Family Medicine; ATTEND Family Medicine
DX: K52.9 Noninfective gastroenteritis and colitis, unspecified (principal); K92.1 Melena; E87.1 Hypo-osmolality and hyponatremia; I10 Essential (primary) hypertension; E78.5 Hyperlipidemia, unspecified; E03.9 Hypothyroidism, unspecified; F32.9 Major depressive disorder, single episode, unspecified; R32 Unspecified urinary incontinence; M54.30 Sciatica, unspecified side; K21.9 Gastro-esophageal reflux disease without esophagitis; G25.81 Restless legs syndrome; K57.90 Diverticulosis of intestine, part unspecified, without perforation or abscess without bleeding; D72.829 Elevated white blood cell count, unspecified
CPT/HCPCS: 36415; 74177; 80048; 80053; 80076; 81003; 81015; 83690; 83735; 83930; 83935; 84300; 84439; 84443; 85025; 85610; 85730; 86850; 86900; 86901; 87086; 87088; 94010; 96361; 96365; 96366; 96375; 99285; J0744; J2405; J3010; J3475; J3480; J7030; J7040; Q9967